=== PATIENT | female | born 1935 | race Caucasian/White ===

== ENCOUNTER 2017-05-24 08:00 | Outpatient (CLI) | payer MEDICARE, OTHER ==
[2017-05-24 18:53] LABS: BILIRUBIN,URINE NEGATIVE (NEGATIVE); PH,URINE 5.5 PH (5.0-7.5)
[2017-05-24 19:01] LABS: UR CULTURE IF IND NOT INDICATED; WBC,URINE 0-3 /HPF (0-5)
== END 2017-05-24 08:01 | disposition home or self-care (01) ==
LOC: LAB.R 08:00
PROVIDERS: ATTEND Physician Assistant Medical
DX: R30.0 Dysuria (principal)
CPT/HCPCS: 81001; 87086

== ENCOUNTER 2017-06-06 09:35 | Outpatient (CLI) | payer MEDICARE, OTHER ==
[2017-06-06 18:49] LABS: BILIRUBIN,URINE NEGATIVE (NEGATIVE); PH,URINE 6.5 PH (5.0-7.5)
[2017-06-06 19:04] LABS: UR CULTURE IF IND NOT INDICATED
== END 2017-06-06 09:36 | disposition home or self-care (01) ==
LOC: LAB.WCP 09:35
PROVIDERS: ATTEND Physician Assistant Medical
DX: R30.0 Dysuria (principal)
CPT/HCPCS: 81001; 87086

== ENCOUNTER 2017-06-14 13:40 | Outpatient (CLI) | payer MEDICARE, OTHER | END 2017-06-14 13:41 | disposition home or self-care (01) | LOC: LAB.WCP 13:40 | PROVIDERS: ATTEND Physician Assistant Medical | DX: R30.0 Dysuria (principal) | CPT/HCPCS: 87086 ==

== ENCOUNTER 2017-07-04 09:40 | Outpatient (CLI) | payer MEDICARE, OTHER ==
[2017-07-04 13:27] LABS: BASOPHILS % (AUTO) 0.2 %; EOSINOPHILS % (AUTO) 2.7 %; HCT - HEMATOCRIT 39.5 % (37.0-47.0); HGB - HEMOGLOBIN 13.7 g/dL (12.0-16.0); LYMPHOCYTES % (AUTO) 64.6 %; MEAN CORPUSCULAR HEMOGLOBIN 33.6 pg (27.0-31.0); MEAN CORPUSCULAR HGB CONC 34.6 g/dL (32.0-36.0); MEAN CORPUSCULAR VOLUME 97.1 fL (81.0-99.0); MEAN PLATELET VOLUME 8.5 fL (7.9-10.8); MONOCYTES % (AUTO) 7.1 %; NEUTROPHILS % (AUTO) 25.4 %; RED BLOOD COUNT 4.07 10^6/uL (4.20-5.40); RED CELL DISTRIBUTION WIDTH 14.4 % (12.0-15.0); UNCORRECTED WHITE BLOOD COUNT 7.1 x10^3/uL; WHITE BLOOD COUNT 7.1 x10^3/uL (4.8-10.8)
[2017-07-04 14:25] LABS: ALBUMIN/GLOBULIN RATIO 1.5 (1.0-2.2); BILIRUBIN,TOTAL 0.6 mg/dL (0.2-1.0); BUN - BLOOD UREA NITROGEN 22 mg/dL (6-20); CALCIUM 9.5 mg/dL (8.5-10.3); CARBON DIOXIDE - CO2 29 mmol/L (21-32); CHLORIDE 104 mmol/L (101-111); CHOL/HDL RATIO 4.6 (<4.4); CHOLESTEROL 221 mg/dL; GFR - MDRD 53 (>89); GLUCOSE 107 mg/dL (70-100); HDL CHOLESTEROL 48 mg/dL; LDL/HDL RATIO 2.7 (<4.4); POTASSIUM 4.3 mmol/L (3.5-5.0); SODIUM 140 mmol/L (135-145); TOTAL PROTEIN 6.6 g/dL (6.7-8.2); TRIGLYCERIDES 219 mg/dL; VLDL CHOLESTEROL 44 mg/dL
[2017-07-04 14:38] LABS: BAND NEUTROPHILS % (MANUAL) 0 %
[2017-07-04 15:13] LABS: EOSINOPHILS % (MANUAL) 5 %; LYMPHOCYTES % (MANUAL) 46 %; NEUTROPHILS % (MANUAL) 22 %; TOTAL CELLS COUNTED 100
[2017-07-04 15:14] LABS: NP AUTO DIFFERENTIAL? YES; NP MAN DIFFERENTIAL? NO
== END 2017-07-04 09:41 | disposition home or self-care (01) ==
LOC: LAB.WCP 09:40
PROVIDERS: ATTEND Physician Assistant Medical
DX: I10 Essential (primary) hypertension (principal); E78.5 Hyperlipidemia, unspecified; D47.3 Essential (hemorrhagic) thrombocythemia
CPT/HCPCS: 36415; 80053; 80061; 85025

== ENCOUNTER 2018-05-08 13:52 | Outpatient (CLI) | payer MEDICARE, OTHER ==
--- NOTE | 2018-05-09 14:39 | Mammography Report ---
Procedure Date: 05/08/2018 Accession Number: [id number] / [id number] Procedure: MGN - Screening Mammo Dig Bilat CPT Code: FULL RESULT: EXAM: Screening Mammo Dig Bilat DATE: 05/08/2018 2:18 PM CLINICAL HISTORY: 82-year-old female with history of left cyst aspiration and family history of breast cancer in her sister when she was in her 40s presents for screening mammogram. TECHNIQUE: Bilateral CC and MLO views were obtained. COMPARISON: 05/07/2016, 07/05/2014, 07/01/2013, 06/18/2012. FINDINGS: The breasts demonstrate diffuse fatty replacement bilaterally. There are coarse typically benign calcifications. No suspicious masses, clustered microcalcifications, or regions of architectural distortion are identified. IMPRESSION: Benign findings RECOMMENDATION: Routine annual screening unless otherwise clinically indicated. BIRADS CATEGORY 2: Benign findings STANDARD QUALIFYING STATEMENTS: 1. This examination was reviewed with the aid of Computer-Aided Detection (CAD). 2. A negative or benign imaging report should not delay biopsy if clinically suspicious findings are present. Consider surgical consultation if warrented. More than 5% of cancers are not identified by imaging. 3. Dense breasts may obscure an underlying neoplasm.
== END 2018-05-08 13:53 | disposition home or self-care (01) ==
LOC: DI.N 13:52
PROVIDERS: ATTEND Physician Assistant Medical
DX: Z12.31 Encounter for screening mammogram for malignant neoplasm of breast (principal); Z80.3 Family history of malignant neoplasm of breast
CPT/HCPCS: 77067

== ENCOUNTER 2018-05-21 08:54 | Outpatient (CLI) | payer MEDICARE, OTHER ==
--- NOTE | 2018-05-21 11:24 | DEXA Report ---
Procedure Date: 05/21/2018 Accession Number: [id number] / [id number] Procedure: DEX - Dexa Spine and/or Hip CPT Code: FULL RESULT: EXAM: Dexa Spine and/or Hip DATE: 05/21/2018 9:15 AM CLINICAL HISTORY: BONE DISEASE TECHNIQUE: Dual energy x-ray absorptiometry (DXA) was performed on a Scale[employer] Software System. Regions measured are the AP Spine, femoral neck, and if needed forearm. COMPARISON: None. In accordance with the International Society for Clinical Densitometry (ISCD) guidelines, data from previous exams may be reanalyzed using current recommendations and techniques. This is done to allow a more accurate basis for comparison with the current study. FINDINGS: The data for the lumbar spine is as follows: BMD (g/cm/cm) T-SCORE Z-SCORE REGION L1 0.944 -1.6 0.2 L2 0.977 -1.9 -0.1 L3 1.060 -1.2 0.6 L4 1.100 -0.8 0.9 TOTAL 1.027 -1.3 0.5 NOTE: All evaluable vertebrae are used for classification The data for the hip is as follows: BMD (g/cm/cm) T-SCORE Z-SCORE REGION Neck 0.721 -2.3 -0.1 TOTAL 0.745 -2.1 0.0 NOTE: The femoral neck or total proximal femur, whichever is lowest, is used for classification. DXA RESULTS SUMMARY: Spine SCAN DATE AGE BMD CHANGE VS CHANGE VS PREVIOUS PREVIOUS % [birth year][age] 1.027 -0.020 -1.9 05/07/2016 [age] 1.047 * Denotes significant change at the 95% confidence level. Denotes dissimilar scan types or analysis methods. DXA RESULTS SUMMARY: Hip SCAN DATE AGE BMD CHANGE VS CHANGE VS PREVIOUS PREVIOUS % [birth year]2018 [age] 0.745 -0.038* -4.9* 05/07/2016 80.7 0.783 * Denotes significant change at the 95% confidence level. Denotes dissimilar scan types or analysis methods. IMPRESSION: THE WHO CLASSIFICATION BASED ON THE INTERNATIONAL REFERENCE STANDARD IS OSTEOPENIA. THE FRACTURE RISK IS INCREASED. RECOMMENDATION: Patients with diagnosis of osteoporosis or osteopenia should have regular bone mineral density assessment. For those eligible for Medicare, routine testing is allowed once every 2 years. Testing frequency can be increased for patients who have rapidly progressing disease or for those who are receiving medical therapy to restore bone mass. COMMENT: World Health Organization (WHO) definitions for osteoporosis and osteopenia: NORMAL BMD: T-score at -1.0 or higher, fracture risk is low OSTEOPENIA BMD: T-score between -1.0 and -2.5, fracture risk is increased. OSTEOPOROSIS BMD: T-score at -2.5 or lower, fracture risk is high. National Osteoporosis Foundation recommends: 1. Obtain adequate dietary calcium (at least 1200 mg per day) and vitamin D (400-800 international units per day). 2. Participate, as appropriate, in regular weightbearing and muscle-strengthening exercise. 3. Avoid tobacco use and reduce alcohol and caffeine intake. 4. For more detailed information see the website at www.NOF.org.
== END 2018-05-21 08:55 | disposition home or self-care (01) ==
LOC: DI 08:54
PROVIDERS: ATTEND Physician Assistant Medical
DX: M85.89 Other specified disorders of bone density and structure, multiple sites (principal)
CPT/HCPCS: 77080

== ENCOUNTER 2019-03-11 11:22 | Outpatient (CLI) | payer MEDICARE, OTHER ==
--- NOTE | 2019-03-12 16:22 | XRAY Report ---
Reason: SCIATICA,RIGHT Procedure Date: 03/11/2019 Accession Number: [id number] / [id number] Procedure: WCP - Lumbar Spine 2 View CPT Code: FULL RESULT: EXAM: LUMBOSACRAL SPINE RADIOGRAPHY EXAM DATE: 03/11/2019 11:41 AM. CLINICAL HISTORY: SCIATICA,RIGHT. COMPARISONS: None. TECHNIQUE: 2 views. FINDINGS: Alignment: Grade 1 anterior listhesis L4 on L5. Bones: Five wce-hnz-ktyjutt lumbar vertebral bodies are present. Height loss T11 and T12 Disks: Advanced L5-S1 disk space narrowing. Minor scattered disk space narrowing at other levels. Facets: Moderate lower lumbar degenerative changes. Sacroiliac Joints: Unremarkable. Soft Tissues: Nonspecific IMPRESSION: Degenerative change lumbar spine including degenerative grade 1 anterior listhesis of L4 on L5. Lumbar spinal stenosis is likely present but could be best assessed by MRI. Possible compression deformity T11 greater than T12 incompletely evaluated by this study. RADIA
== END 2019-03-11 11:23 | disposition home or self-care (01) ==
LOC: DI.WCP 11:22
PROVIDERS: ATTEND Family Medicine
DX: M51.37 Other intervertebral disc degeneration, lumbosacral region (principal); M47.816 Spondylosis without myelopathy or radiculopathy, lumbar region; M43.16 Spondylolisthesis, lumbar region
CPT/HCPCS: 72100

== ENCOUNTER 2019-03-17 13:39 | Outpatient (CLI) | payer MEDICARE, OTHER ==
--- NOTE | 2019-03-17 15:06 | XRAY Report ---
Reason: CHRONIC BACK PAIN Procedure Date: 03/17/2019 Accession Number: [id number] / [id number] Procedure: XR - Thoracic Spine 2 View CPT Code: FULL RESULT: EXAM: THORACIC SPINE RADIOGRAPHY. EXAM DATE: 03/17/2019 02:03 PM. CLINICAL HISTORY: Chronic back pain. COMPARISON: LUMBAR SPINE 2 VIEW 03/11/2019 11:24 AM. TECHNIQUE: 2 views. FINDINGS: Alignment: There is possibly 3 mm retrolisthesis of T11 on T12 partly visualized due to motion artifact, demineralization and rotation. No significant scoliosis. Bones: The bones are qualitatively osteopenic; this limits evaluation for underlying fractures or masses. There is mild wedging with anterior loss of height of multiple mid vertebral bodies, 25% or less at each level. This results in mild kyphosis. Disks: There is marginal osteophytosis anteriorly along most levels of the thoracic spine with partial loss of disk space height. Soft Tissues: There is suggestion of coarsened interstitial lung markings which can be seen with chronic lung disease but could also be due to technique optimized for the thoracic spine. IMPRESSION: Loss of height of the T11 vertebral body is better demonstrated on the recent lumbar spine imaging. Question of mild retrolisthesis at the T11-T12 level. These findings are not well evaluated principally due to the profound osteopenia. Recommendation: Given that the patient's symptoms correspond to the lower thoracic spine, recommend consideration for MRI of the thoracolumbar spine which would help delineate anatomy, status of the central canal and identify levels with acute edema possibly amenable to therapy. RADIA
== END 2019-03-17 13:40 | disposition home or self-care (01) ==
LOC: DI 13:39
PROVIDERS: ATTEND Family Medicine
DX: M85.88 Other specified disorders of bone density and structure, other site (principal)
CPT/HCPCS: 72070

== ENCOUNTER 2019-03-28 09:13 | Outpatient (CLI) | payer MEDICARE, OTHER ==
--- NOTE | 2019-03-30 13:20 | MRI Report ---
Reason: COLLAPSED VERTEBRA, NOT ELSWHERE CLASSIFIED, SITE Procedure Date: 03/28/2019 Accession Number: [id number] / [id number] Procedure: MRI - Thoracic Spine W/O CPT Code: FULL RESULT: EXAM: MRI THORACIC SPINE WITHOUT CONTRAST EXAM DATE: 03/28/2019 11:00 AM. CLINICAL HISTORY: Collapsed vertebra, not elsewhere classified, site. COMPARISONS: Radiographs 03/17/2019. TECHNIQUE: Multiplanar, multisequence T1-weighted and fluid-sensitive sequences of the thoracic spine from C7 to L3 without contrast. Other: None. FINDINGS: Evaluation mildly limited due to patient motion and large oyxty-tk-tkgz. Spinal Canal: No signal abnormality in the visualized spinal cord. Alignment: Mild S-shaped thoracic curvature partially visualized. Thoracic kyphosis measures 53 degrees from T1 to T12. 3 mm retrolisthesis at T12 on L1. Bone Marrow: Multiple scattered hemangiomas throughout the thoracic spine. The largest of these at T8 involves the entire vertebral body. Mild anterior wedging present at T8 with less than 10% height loss anteriorly. Evaluation for superimposed bone marrow edema limited due to large hemangioma. No gross edema visualized in the pedicles. Mild anterior wedging also present at T6, T7, and T9 without gross bone marrow edema, likely chronic. Fatty endplate changes present at multiple levels. Mild diskogenic edema present at multiple levels, most prominent at T10-T11 anteriorly. Disk Levels/Facets: Mild to moderate degenerative disk and facet changes throughout the thoracic spine. These contribute to minimal to mild central canal stenosis, most prominent at C6-C7 and T10-T11 where there is mild stenosis. Evaluation of the neural foramen limited due to the large solitario of view. Moderate to severe bilateral neural foramen stenosis partially visualied at C6-C7. Scattered mild neural foramen stenosis in the thoracic spine. Mild to moderate bilateral neural foramen stenosis at T10-T11. Musculature: Mild fatty atrophy posterior paraspinous musculature. No gross muscle edema. Other: The visualized lungs, mediastinum, and abdominal cavity are unremarkable. No prevertebral soft tissue edema. IMPRESSION: 1. Mild anterior compression deformity at T8. Large hemangioma at the site limits evaluation for bone marrow edema. No gross edema extending into the limits evaluation for superimposed bone marrow edema. No definite adjacent bone marrow edema such as within the pedicles to suggest acute fracture. 2. Old mild anterior compression deformities at T6, T7, and T9. 3. Mild to moderate degenerative disk and facet changes. 4. Grade 1 retrolisthesis at T12 on L1. 5. Mild central canal stenosis at C6-C7 and T10-T11. 6. Moderate to severe bilateral neural foramen stenosis partially visualized at C6-C7. Mild to moderate bilateral neural foraminal stenosis at T10-T11. RADIA
--- NOTE | 2019-03-30 13:24 | MRI Report ---
Reason: COLLAPSED VERTEBRA, NOT ELSWHERE CLASSIFIED, SITE Procedure Date: 03/28/2019 Accession Number: [id number] / [id number] Procedure: MRI - Lumbar Spine W/O CPT Code: FULL RESULT: EXAM: MRI LUMBAR SPINE WITHOUT CONTRAST EXAM DATE: 03/28/2019 11:25 AM. CLINICAL HISTORY: Right leg pain; collapsed vertebra. COMPARISON: Radiographs 03/11/2019. TECHNIQUE: Multiplanar, multisequence T1-weighted and fluid-sensitive sequences of the lumbar spine from T11 to S1 without contrast. Other: None. FINDINGS: Spinal Canal: The conus terminates at L1-L2. The conus medullaris and cauda equina are unremarkable. Alignment: No scoliosis. 3 mm retrolisthesis at T12 on L1. 5 mm anterolisthesis at L4 on L5. Bone Marrow: Five qia-uur-balghaz lumbar vertebral bodies are present. No gross fracture. Multiple large fat-containing hemangiomas are present, including large foci involving the majority of the L1, L2, and L4 vertebral bodies. Disk Levels/Facets: Disk desiccation throughout. Moderate disk height loss at L5-S1. L1-L2: Small disk bulge. Mild facet and ligamentum flavum hypertrophy. Minimal central canal stenosis. Mild right neural foramen stenosis. L2-L3: Small disk bulge. Mild facet and ligamentum flavum hypertrophy. Minimal central canal stenosis. Mild left neural foramen stenosis. L3-L4: Small disk bulge. Moderate right and mild left facet and ligamentum flavum hypertrophy. Minimal central canal stenosis. Mild right neural foramen stenosis. L4-L5: Uncovering of the disk and small broad-based disk bulge extending into the neural foramen. Superimposed small left paracentral disk extrusion extending cranially 0.5 cm. Severe facet and ligamentum flavum hypertrophy. Prominent epidural fat contributes to moderate central canal stenosis. Severe bilateral lateral recess stenosis. Moderate right and moderate to severe left neural foramen stenosis. L5-S1: Moderate broad-based disk osteophyte complex. Mild facet and ligamentum flavum hypertrophy. Mild to moderate bilateral neural foramen stenosis. Musculature: Mild fatty atrophy posterior paraspinous musculature. Minimal reactive edema adjacent to the lower lumbar facets. Other: 2 cm fluid sensitive hyperintense cystic focus at the superior pole left kidney. 1.1 cm focus of T1 and fluid sensitive hypointense signal at the inferior pole right kidney. This is incompletely evaluated but suggestive of a proteinaceous or hemorrhagic cyst. IMPRESSION: 1. Mild to moderate degenerative disk and moderate to severe degenerative facet changes. 2. Grade 1 retrolisthesis at T12 on L1. Grade 1 anterolisthesis at L4 on L5. 3. Moderate central canal stenosis at L4-L5. Severe bilateral lateral recess stenosis. Moderate right and moderate to severe left neural foramen stenosis. 4. Minimal central canal stenosis at L1-L2 through L3-L4. 5. Mild to moderate bilateral neural foramen stenosis at L5-S1. 6. Multiple fat-containing hemangiomas in the vertebral bodies. Comment: The following findings are so common in adults without low back pain that while we report their presence, they must be interpreted with caution and in the context of the clinical situation. (Reference Evelynvik et al, Spine 2001) Prevalence of findings in patients without low back pain: Disk degeneration (any evidence): 92% Disk desiccation/T2 signal loss: 83% Disk height loss: 56% Disk bulge: 64% Disk protrusion: 32% Annular tear/high intensity zone: 38% RADIA
== END 2019-03-28 09:14 | disposition home or self-care (01) ==
LOC: DI 09:13
PROVIDERS: ATTEND Family Medicine
DX: M51.34 Other intervertebral disc degeneration, thoracic region (principal); M48.04 Spinal stenosis, thoracic region; M47.814 Spondylosis without myelopathy or radiculopathy, thoracic region; M43.9 Deforming dorsopathy, unspecified; M43.15 Spondylolisthesis, thoracolumbar region; M48.02 Spinal stenosis, cervical region; M51.36 Other intervertebral disc degeneration, lumbar region; M48.061 Spinal stenosis, lumbar region without neurogenic claudication; M47.816 Spondylosis without myelopathy or radiculopathy, lumbar region; M47.817 Spondylosis without myelopathy or radiculopathy, lumbosacral region; M43.16 Spondylolisthesis, lumbar region
CPT/HCPCS: 72146; 72148

== ENCOUNTER 2019-05-29 14:50 | Outpatient (CLI) | payer MEDICARE, OTHER ==
--- NOTE | 2019-06-01 11:00 | Mammography Report ---
Reason: SCREENING MAMMO Procedure Date: 05/29/2019 Accession Number: [id number] / [id number] Procedure: RANDY - Screening Mammo w/Luis CPT Code: FULL RESULT: EXAM: Screening Mammo w/Luis DATE: 05/29/2019 3:17 PM CLINICAL HISTORY: Routine screening. No reported personal history of breast cancer. Family history breast cancer sister age 60 and maternal aunt age 40. TECHNIQUE: (B) - Bilateral CC and MLO views were obtained. COMPARISON: 05/08/2018 through 07/01/2013 PARENCHYMAL PATTERN: (A) - The breasts demonstrate scattered fibroglandular densities bilaterally. FINDINGS: Bilateral breasts: There are multiple stable, similar appearing, round and oval circumscribed margin benign-appearing masses in both breasts. There are no suspicious masses, calcifications, or areas of distortion. IMPRESSION: Benign findings. BI-RADS category 2. RECOMMENDATION: (ANNUAL) - Recommend routine annual screening mammography. BI-RADS CATEGORY: (2) - Benign Findings. STANDARD QUALIFYING STATEMENTS: 1. This examination was not reviewed with the aid of Computer-Aided Detection (CAD). 2. A negative or benign imaging report should not preclude biopsy if clinically suspicious findings are present. 3. Dense breasts may obscure an underlying neoplasm. 4. This examination was reviewed with the aid of 3D breast imaging (tomosynthesis).
== END 2019-05-29 14:51 | disposition home or self-care (01) ==
LOC: DI 14:50
DX: Z12.31 Encounter for screening mammogram for malignant neoplasm of breast (principal); Z80.3 Family history of malignant neoplasm of breast
CPT/HCPCS: 77063; 77067

== ENCOUNTER 2019-07-09 08:00 | Outpatient (CLI) | payer MEDICARE, OTHER ==
[2019-07-09 14:35] LABS: BILIRUBIN,URINE NEGATIVE (NEGATIVE); GLUCOSE, URINE (UA) NEGATIVE (NEGATIVE); KETONES,URINE (UA) NEGATIVE (NEGATIVE); LEUKOCYTE ESTERASE, URINE NEGATIVE (NEGATIVE); NITRITE,URINE NEGATIVE (NEGATIVE); OCCULT BLOOD,URINE NEGATIVE (NEGATIVE); PROTEIN,URINE NEGATIVE (NEGATIVE); UROBILINOGEN,URINE 0.2 (NORMAL) E.U./dL (NORMAL)
[2019-07-09 14:37] LABS: CLARITY,URINE CLEAR (CLEAR)
== END 2019-07-09 23:59 | disposition home or self-care (01) ==
LOC: LAB.R 08:00
PROVIDERS: ATTEND Physician Assistant Medical
DX: N39.498 Other specified urinary incontinence (principal)
CPT/HCPCS: 81001; 81003; 87086

== ENCOUNTER 2020-04-13 08:00 | Outpatient (CLI) | payer MEDICARE, OTHER | END 2020-04-13 23:59 | disposition home or self-care (01) | LOC: LAB 08:00 | PROVIDERS: ATTEND Physician Assistant Medical | DX: J30.9 Allergic rhinitis, unspecified (principal); Z20.828 Contact with and (suspected) exposure to other viral communicable diseases | CPT/HCPCS: 81599 ==

== ENCOUNTER 2020-07-27 08:00 | Outpatient (CLI) | payer MEDICARE, OTHER ==
[2020-07-27 18:41] LABS: ALBUMIN 4.1 g/dL (3.2-5.5); ALBUMIN/GLOBULIN RATIO 1.6 (1.0-2.2); ALKALINE PHOSPHATASE 55 IU/L (42-121); ALT ALANINE AMINOTRANSFERASE 22 IU/L (10-60); AST ASPARTATE AMINOTRANSFERASE 30 IU/L (10-42); BILIRUBIN,TOTAL 0.6 mg/dL (0.2-1.0); BUN - BLOOD UREA NITROGEN 21 mg/dL (6-20); CALCIUM 9.8 mg/dL (8.5-10.3); CARBON DIOXIDE - CO2 28 mmol/L (21-32); CHLORIDE 101 mmol/L (101-111); CHOL/HDL RATIO 4.8 (<4.4); CHOLESTEROL 240 mg/dL; GLUCOSE 126 mg/dL (70-100); HDL CHOLESTEROL 50 mg/dL; LDL CHOLESTEROL,CALCULATED 133 mg/dL; LDL/HDL RATIO 2.7 (<4.4); SODIUM 136 mmol/L (135-145); TOTAL PROTEIN 6.7 g/dL (6.7-8.2); VLDL CHOLESTEROL 57 mg/dL
== END 2020-07-27 08:01 | disposition home or self-care (01) ==
LOC: LAB.WCP 08:00
PROVIDERS: ATTEND Physician Assistant Medical
DX: I10 Essential (primary) hypertension (principal); E78.5 Hyperlipidemia, unspecified
CPT/HCPCS: 36415; 80053; 80061; 83721